=== PATIENT | male | born 1955 | race Caucasian/White ===

== ENCOUNTER 2017-04-11 02:19 | Emergency (ER) | payer OTHER ==
--- NOTE | 2017-04-11 02:42 | PDOC ---
History of Present Illness - General History Source: Patient Exam Limitations: No Limitations - History of Present Illness Initial Comments: 04/11/17 03:10 The patient is a 61-year-old male, with a significant past medical history of HTN and asthma, who presents to the ED with allergic rxn. The patient reports that he went into anaphylactic shock after consuming shellfish two weeks ago. Pt had dinner with his and denies eating any crawfish but reports that his was. He is now complaining of fullness in his throat and numbness/tingling of his lips, but denies any shortness of breath or rashes. He denies taking any medications but does have his epipen on hand. He denies any fever, cough, nausea or vomiting. <Shea Cobb - Last Filed: 04/11/17 03:11> <Ami Singh - Last Filed: 04/11/17 06:40> - General Chief Complaint: Allergic Reaction Stated Complaint: ALLEGIC REACTION Time Seen by Provider: 04/11/17 02:24 Past History <Shea Cobb - Last Filed: 04/11/17 03:11> <Ami Singh - Last Filed: 04/11/17 06:40> - Past Medical History Allergies/Adverse Reactions: Allergies Allergy/AdvReac Type Severity Reaction Status Date / Time shellfish derived Allergy Verified 04/11/17 02:41 Home Medications: Ambulatory Orders Budesonide [Pulmicort 0.25 mg Nebulizer -] 1 neb NEB DAILY 04/11/17 Omeprazole Magnesium [Prilosec] 2.5 mg PO DAILY 04/11/17 Review of Systems - Review of Systems Able to Perform ROS?: Yes Comments:: 04/11/17 03:11 CONSTITUTIONAL: Absent: fever, chills, diaphoresis, generalized weakness, malaise, loss of appetite HEENT: Present: Throat fullness Absent: rhinorrhea, nasal congestion, throat pain, mouth swelling, ear pain, eye pain, visual Changes CARDIOVASCULAR: Absent: chest pain, syncope, palpitations, irregular heart rate, lightheadedness , peripheral edema RESPIRATORY: Absent: cough, shortness of breath, dyspnea with exertion, orthopnea, wheezing, stridor, hemoptysis GASTROINTESTINAL: Absent: abdominal pain, abdominal distension, nausea, vomiting, diarrhea, constipation, melena, hematochezia GENITOURINARY: Absent: dysuria, frequency, urgency, hesitancy, hematuria, flank pain, genital pain MUSCULOSKELETAL: Absent: myalgia, arthralgia, joint swelling SKIN: Absent: rash, itching, pallor HEMATOLOGIC/IMMUNOLOGIC: Absent: easy bleeding, easy bruising, lymphadenopathy, frequent infections ENDOCRINE: Absent: unexplained weight gain, unexplained weight loss, heat intolerance, cold intolerance NEUROLOGIC: Present: numbness/tingling in lips Absent: headache, dizziness, unsteady gait, seizure, mental status changes, bladder or bowel incontinence PSYCHIATRIC: Absent: anxiety, depression, suicidal or homicidal ideation, hallucinations. <Shea Cobb - Last Filed: 04/11/17 03:11> *Physical Exam - Vital Signs Last Vital Signs Temp Pulse Resp BP Pulse Ox 97.9 F 88 20 159/82 98 04/11/17 02:41 04/11/17 02:41 04/11/17 02:41 04/11/17 02:41 04/11/17 02:41 - Physical Exam Comments: 04/11/17 03:15 GENERAL: Well-appearing, well-nourished. No apparent distress. HEENT: Normocephalic, atraumatic. PERRL, EOM intact. CARDIOVASCULAR: Normal S1, S2. Regular rate and rhythm. PULMONARY: Clear to auscultation bilaterally. ABDOMEN: Soft, non-distended, non-tender. EXTREMITIES: Normal ROM in all four extremities. No gross deformities. SKIN: Warm, dry. No rash NEUROLOGICAL: No focal neurological deficits. <Shea Cobb - Last Filed: 04/11/17 03:11> ED Treatment Course - LABORATORY CBC & Chemistry Diagram: 04/11/17 02:57 <Shea Cobb - Last Filed: 04/11/17 03:11> - LABORATORY CBC & Chemistry Diagram: 04/11/17 04:30 04/11/17 02:57 <Ami Singh - Last Filed: 04/11/17 06:40> Medical Decision Making - Medical Decision Making 04/11/17 06:35 Pt comes with feeling of tightness in his throat after eating out. He thinks that it could be due to contamination of his food with seafood. He has exteme allergy to seafood and carries an epipen. Pt has no other complaints. However neck and chest tightness could be cardiac. He has extensive CAD. He has a pacemaker. 1st enzyme is normal. EKG has q waves. 2nd enzyme pending and EKG unchanged. Pt feels fine in the ER and he will be discharged home id enzymes are normal. Pt lives in [place] and PMD is there. <Ami Singh - Last Filed: 04/11/17 06:40> *DC/Admit/Observation/Transfer - Attestations Scribe Attestion: 04/11/17 03:17 Documentation prepared by Shea Cobb, acting as medical leader for Ami Singh MD. <Shea Cobb - Last Filed: 04/11/17 03:11> - Discharge Dispostion Admit: No <Ami Singh - Last Filed: 04/11/17 06:40> Diagnosis at time of Disposition: Allergic reaction, Atypical chest pain - Discharge Dispostion Disposition: HOME Condition at time of disposition: Stable - Patient Instructions Printed Discharge Instructions: DI for Food Allergy, DI for Atypical Chest Pain
[2017-04-11 02:43] VITALS: BP 159/82; PULSE 88; TEMP 97.9; BMI 28.7
[2017-04-11] MEDS ORDERED: DEXAMETHASONE SOD PHOSPHATE 10 MG/1 ML VIAL IVPUSH ONE (02:45)
[2017-04-11] MEDS ORDERED: RANITIDINE HCL 150 MG TABLET (FP) PO ONE (02:45)
[2017-04-11] MEDS ORDERED: DEXAMETHASONE SOD PHOSPHATE 10 MG/1 ML VIAL ONE (03:05)
[2017-04-11] MEDS ORDERED: RANITIDINE HCL 150 MG TABLET (FP) ONE (03:05)
[2017-04-11 03:22] LABS: INR 0.89 (0.82-1.09); PROTHROMBIN TIME (PATIENT) 9.8 SEC (9.98-11.88)
[2017-04-11 03:31] LABS: ALBUMIN 3.8 g/dl (3.4-5.0); ANION GAP 10 (8-16); BILIRUBIN,TOTAL 0.4 mg/dL (0.2-1.0); CALCIUM 8.5 mg/dL (8.5-10.1); CO2 23 mmol/L (21-32); CREATININE 1.2 mg/dL (0.7-1.3); GLUCOSE,RANDOM 120 mg/dL (74-106); SGPT/ALT 31 U/L (12-78); TOT PROT 7.3 g/dl (6.4-8.2)
[2017-04-11 03:34] LABS: ALK PHOS 71 U/L (45-117); TROPONIN I < 0.02 ng/ml (0.00-0.05)
[2017-04-11 03:35] LABS: SGOT/AST 35 U/L (15-37)
[2017-04-11 03:36] LABS: CPK 238 IU/L (39-308)
[2017-04-11 05:02] LABS: BASOPHIL 0.9 % (0-2.0); EOSINOPHIL 1.5 % (0-4.5); MCH 30.5 pg (25.7-33.7); MCHC 34.2 g/dl (32.0-35.9); MEAN CELL VOLUME 89.2 fl (80-96); MEAN PLT VOLUME 8.4 fl (7.5-11.1); NEUTROPHILS 83.2 % (42.8-82.8); PLATELET COUNT 173 K/MM3 (134-434); RDW 14.3 % (11.9-15.9)
[2017-04-11 06:44] LABS: CPK 149 IU/L (39-308); TROPONIN I < 0.02 ng/ml (0.00-0.05)
--- NOTE | 2017-04-11 09:16 | EKG ---
Test Reason : Blood Pressure : / mmHG Vent. Rate : 074 BPM Atrial Rate : 074 BPM P-R Int : 182 ms QRS Dur : 092 ms QT Int : 402 ms P-R-T Axes : 033 -49 -06 degrees QTc Int : 446 ms NORMAL SINUS RHYTHM POSSIBLE LEFT ATRIAL ENLARGEMENT LEFT AXIS DEVIATION INFERIOR INFARCT (CITED ON OR BEFORE 11-APR-2017) POSSIBLE SEPTAL INFARCT ABNORMAL ECG Confirmed by MD THANG, SUNITA ([id number]) on 04/11/2017 9:16:24 AM Referred By: Confirmed By:SUNITA DESIR MD
--- NOTE | 2017-04-11 09:17 | EKG ---
Test Reason : Blood Pressure : / mmHG Vent. Rate : 082 BPM Atrial Rate : 082 BPM P-R Int : 186 ms QRS Dur : 088 ms QT Int : 368 ms P-R-T Axes : 041 -52 003 degrees QTc Int : 429 ms NORMAL SINUS RHYTHM LEFT AXIS DEVIATION INFERIOR INFARCT , AGE UNDETERMINED ANTERIOR INFARCT , AGE UNDETERMINED ABNORMAL ECG NO PREVIOUS ECGS AVAILABLE Confirmed by MD THANG, SUNITA ([id number]) on 04/11/2017 9:16:50 AM Referred By: Confirmed By:SUNITA DESIR MD
== END 2017-04-11 07:14 | disposition home or self-care (01) ==
LOC: JER 02:19
PROC: 3E0333Z Introduction of Anti-inflammatory into Peripheral Vein, Percutaneous Approach (ICD-10-PCS; principal; 2017-04-11)
PROC: 3E033GC Introduction of Other Therapeutic Substance into Peripheral Vein, Percutaneous Approach (ICD-10-PCS; 2017-04-11)
DX: T78.49XA Other allergy, initial encounter (principal); X58.XXXA Exposure to other specified factors, initial encounter; Z91.013 Allergy to seafood; R07.89 Other chest pain; Z95.0 Presence of cardiac pacemaker
CPT/HCPCS: 36415; 71020-TC; 80053; 82553; 84484; 85025; 85610; 93005; 93010; 99281-25; 99282-25